=== PATIENT | female | born 1970 | race Hispanic/Latino ===

== ENCOUNTER 2019-04-27 18:10 | Inpatient (IN) | payer BC ==
[~2019-04-27] VITALS: Ht 162.6 cm; Wt 56.8 kg
[~2019-04-27 18:10] MED LIST: COZAAR25 MG OR; GLUCOVANCE5 MG/500 M OR; LORTAB 5 OR; METFORMIN500 M1 OR
[2019-04-27 18:40] LABS: HEMATOCRIT 34.6 % (37.0-47.0); HEMOGLOBIN 11.3 g/dl (12.0-16.0); IMMATURE GRANULOCYTES 0.5 % (0.0-5.0); MEAN CELL VOLUME 92.5 fL CALC (80.0-100.0); MEAN CORPUSCULAR HGB 30.2 pG CALC (26.0-32.0); MEAN CORPUSCULAR HGB CONC 32.7 g/L CALC (32.0-36.0); NEUT# 7.22 thou/uL (2.00-7.15); RED BLOOD COUNT 3.74 mill/uL (4.20-5.60)
[2019-04-27 18:58] LABS: AMYLASE 31 u/l (30-110); BUN 14 mg/dL (7-17); BUN/CREATININE RATIO 20 (12-20 (CALC)); CHLORIDE 95 mmol/l (95-108); CREATININE 0.7 mg/dL (0.5-1.0); GFR > 60 ML/MIN (>=60 (CALC)); GFR FOR AFR.AMER. > 60 ML/MIN (>=60 (CALC)); LIPASE 115 u/l (23-300); POTASSIUM 4.4 mmol/l (3.5-5.1); SGOT/AST 25 u/l (14-36); TOTAL PROTEIN 6.8 g/dL (6.3-8.2)
[2019-04-27] MEDS ORDERED: METFORMIN850 MG PO (18:58)
[2019-04-27] MEDS ORDERED: AUGMENTIN875TAB PO (19:00)
[2019-04-27] MEDS ORDERED: MICARDIS20 MG PO (19:01)
[2019-04-27] MEDS ORDERED: GLYBURIDE5 M1 PO (19:02)
[2019-04-27 19:07] LABS: ALBUMIN 3.6 g/dL (3.2-5.0); ALKALINE PHOSPHATASE 149 u/l (38-126); ANION GAP 23 (6-22 (CALC)); BILIRUBIN, TOTAL 0.7 mg/dL (0.0-1.4); CARBON DIOXIDE 16 mmol/l (22-30); SODIUM 130 mmol/l (137-146)
[2019-04-27 19:09] LABS: MYOGLOBIN 30 ng/mL (0 - 62)
[2019-04-27 21:02] LABS: URINE BILIRUBIN - DIPSTICK NEGATIVE (NEGATIVE); URINE BLOOD DIPSTICK MODERATE (NEGATIVE); URINE COLOR YELLOW; URINE GLUCOSE - DIPSTICK >=1000 mg/dL (NEGATIVE); URINE KETONE 40 mg/dL (NEGATIVE); URINE LEUK ESTERASE NEGATIVE (NEGATIVE); URINE NITRITE - DIPSTICK NEGATIVE (Negative); URINE PH 5.5 (4.5-8.0); URINE PROTEIN - DIPSTICK 30 mg/dL (NEG-TRACE); URINE UROBILINOGEN - DIPSTICK 0.2 E.U./dL (0.2)
[2019-04-27 21:13] LABS: URINE RBC TNTC RBC/hpf (0-5); URINE SQUAMOUS EPITHELIAL CELL FEW EPI/hpf (0-FEW)
[2019-04-27 21:54] LABS: ALKALINE PHOSPHATASE 101 u/l (38-126); BILIRUBIN, TOTAL 0.9 mg/dL (0.0-1.4); BUN 13 mg/dL (7-17); BUN/CREATININE RATIO 24 (12-20 (CALC)); CARBON DIOXIDE 16 mmol/l (22-30); CREATININE 0.5 mg/dL (0.5-1.0); GFR > 60 ML/MIN (>=60 (CALC)); GFR FOR AFR.AMER. > 60 ML/MIN (>=60 (CALC)); SGOT/AST 28 u/l (14-36); SODIUM 133 mmol/l (137-146)
[2019-04-27 21:58] LABS: ALBUMIN 2.2 g/dL (3.2-5.0); ANION GAP 11 (6-22 (CALC)); CHLORIDE 109 mmol/l (95-108); POTASSIUM 3.4 mmol/l (3.5-5.1); TOTAL PROTEIN 4.6 g/dL (6.3-8.2)
[2019-04-27 22:15] VITALS: BP 92/51
[2019-04-27 22:30] VITALS: BP 87/65
[2019-04-27 22:45] VITALS: BP 81/52
[2019-04-27 23:00] VITALS: BP 76/51
[2019-04-27 23:15] VITALS: BP 80/55
[2019-04-27 23:30] VITALS: BP 100/65
[2019-04-28] VITALS (30 sets, daily range): BP systolic 91–131; BP diastolic 53–80
[2019-04-28 00:44] LABS: ANION GAP 15 (6-22 (CALC)); BUN 11 mg/dL (7-17); BUN/CREATININE RATIO 22 (12-20 (CALC)); CARBON DIOXIDE 12 mmol/l (22-30); CHLORIDE 112 mmol/l (95-108); CREATININE 0.5 mg/dL (0.5-1.0); GFR > 60 ML/MIN (>=60 (CALC)); GFR FOR AFR.AMER. > 60 ML/MIN (>=60 (CALC)); POTASSIUM 3.8 mmol/l (3.5-5.1); SODIUM 135 mmol/l (137-146)
[2019-04-28 05:02] LABS: BUN 9 mg/dL (7-17); BUN/CREATININE RATIO 17 (12-20 (CALC)); CHLORIDE 110 mmol/l (95-108); CREATININE 0.5 mg/dL (0.5-1.0); GFR > 60 ML/MIN (>=60 (CALC)); GFR FOR AFR.AMER. > 60 ML/MIN (>=60 (CALC)); POTASSIUM 3.5 mmol/l (3.5-5.1); SODIUM 138 mmol/l (137-146)
[2019-04-28 05:05] LABS: ANION GAP 15 (6-22 (CALC)); CARBON DIOXIDE 17 mmol/l (22-30)
[2019-04-29] VITALS (22 sets, daily range): BP systolic 97–136; BP diastolic 51–82
[2019-04-29 08:28] LABS: HEMATOCRIT 29.4 % (37.0-47.0); MEAN CELL VOLUME 89.9 fL CALC (80.0-100.0); MEAN CORPUSCULAR HGB 30.6 pG CALC (26.0-32.0); RED BLOOD COUNT 3.27 mill/uL (4.20-5.60); RED CELL DISTRI WIDTH 13.2 % (11.5-15.5)
[2019-04-29 09:19] LABS: ANION GAP 12 (6-22 (CALC)); BUN 6 mg/dL (7-17); BUN/CREATININE RATIO 12 (12-20 (CALC)); CARBON DIOXIDE 18 mmol/l (22-30); CHLORIDE 111 mmol/l (95-108); CREATININE 0.5 mg/dL (0.5-1.0); GFR > 60 ML/MIN (>=60 (CALC)); GFR FOR AFR.AMER. > 60 ML/MIN (>=60 (CALC)); POTASSIUM 3.4 mmol/l (3.5-5.1); SODIUM 137 mmol/l (137-146)
[2019-04-30] VITALS (11 sets, daily range): BP systolic 116–145; BP diastolic 69–86
[2019-04-30 04:54] LABS: HEMATOCRIT 26.9 % (37.0-47.0); MEAN CELL VOLUME 90.3 fL CALC (80.0-100.0); MEAN CORPUSCULAR HGB 30.2 pG CALC (26.0-32.0); MEAN CORPUSCULAR HGB CONC 33.5 g/L CALC (32.0-36.0); RED BLOOD COUNT 2.98 mill/uL (4.20-5.60); RED CELL DISTRI WIDTH 13.8 % (11.5-15.5)
[2019-04-30 05:05] LABS: ALBUMIN 2.4 g/dL (3.2-5.0); ALKALINE PHOSPHATASE 148 u/l (38-126); ANION GAP 10 (6-22 (CALC)); BUN 8 mg/dL (7-17); BUN/CREATININE RATIO 8 (12-20 (CALC)); CARBON DIOXIDE 17 mmol/l (22-30); CHLORIDE 114 mmol/l (95-108); GFR 59 ML/MIN (>=60 (CALC)); GFR FOR AFR.AMER. > 60 ML/MIN (>=60 (CALC)); POTASSIUM 3.8 mmol/l (3.5-5.1); SODIUM 138 mmol/l (137-146); TOTAL PROTEIN 5.3 g/dL (6.3-8.2)
[2019-04-30 05:11] LABS: BILIRUBIN, TOTAL 0.5 mg/dL (0.0-1.4); SGOT/AST 111 u/l (14-36)
[2019-05-01] VITALS (11 sets, daily range): BP systolic 117–147; BP diastolic 63–83
[2019-05-01 04:44] LABS: HEMATOCRIT 27.4 % (37.0-47.0); HEMOGLOBIN 9.2 g/dl (12.0-16.0); IMMATURE GRANULOCYTES 1.1 % (0.0-5.0); MEAN CORPUSCULAR HGB 30.6 pG CALC (26.0-32.0); MEAN CORPUSCULAR HGB CONC 33.6 g/L CALC (32.0-36.0); NEUT# 7.81 thou/uL (2.00-7.15); RED BLOOD COUNT 3.01 mill/uL (4.20-5.60)
[2019-05-01 05:06] LABS: ALBUMIN 2.5 g/dL (3.2-5.0); BILIRUBIN, TOTAL 0.4 mg/dL (0.0-1.4); CREATININE 1.5 mg/dL (0.5-1.0); POTASSIUM 3.8 mmol/l (3.5-5.1); TOTAL PROTEIN 5.4 g/dL (6.3-8.2)
[2019-05-01 10:32] LABS: URINE BILIRUBIN - DIPSTICK NEGATIVE (NEGATIVE); URINE BLOOD DIPSTICK LARGE (NEGATIVE); URINE COLOR YELLOW; URINE GLUCOSE - DIPSTICK 500 mg/dL (NEGATIVE); URINE KETONE NEGATIVE (NEGATIVE); URINE LEUK ESTERASE NEGATIVE (Negative); URINE NITRITE - DIPSTICK NEGATIVE (Negative); URINE PROTEIN - DIPSTICK NEGATIVE (NEG-TRACE); URINE SPECIFIC GRAVITY <=1.005; URINE UROBILINOGEN - DIPSTICK 0.2 E.U./dL (0.2)
[2019-05-01 10:38] LABS: URINE CLARITY SL CLOUDY
[2019-05-01 11:16] LABS: C. DIFFICILE TOXIN A&B NEGATIVE (NEGATIVE)
[2019-05-02] VITALS (13 sets, daily range): BP systolic 136–168; BP diastolic 63–82
[2019-05-02 05:09] LABS: HEMATOCRIT 26.3 % (37.0-47.0); HEMOGLOBIN 8.8 g/dl (12.0-16.0); MEAN CELL VOLUME 90.1 fL CALC (80.0-100.0); MEAN CORPUSCULAR HGB 30.1 pG CALC (26.0-32.0); MEAN CORPUSCULAR HGB CONC 33.5 g/L CALC (32.0-36.0); RED BLOOD COUNT 2.92 mill/uL (4.20-5.60); RED CELL DISTRI WIDTH 14.2 % (11.5-15.5)
[2019-05-02 05:25] LABS: ALBUMIN 2.5 g/dL (3.2-5.0); BILIRUBIN, TOTAL 0.3 mg/dL (0.0-1.4); CREATININE 1.6 mg/dL (0.5-1.0); POTASSIUM 3.9 mmol/l (3.5-5.1); TOTAL PROTEIN 5.5 g/dL (6.3-8.2)
[2019-05-03] VITALS (10 sets, daily range): BP systolic 122–159; BP diastolic 65–86
[2019-05-03 06:38] LABS: HEMATOCRIT 26.5 % (37.0-47.0); HEMOGLOBIN 8.9 g/dl (12.0-16.0); IMMATURE GRANULOCYTES 1.2 % (0.0-5.0); MEAN CELL VOLUME 90.4 fL CALC (80.0-100.0); MEAN CORPUSCULAR HGB 30.4 pG CALC (26.0-32.0); MEAN CORPUSCULAR HGB CONC 33.6 g/L CALC (32.0-36.0); NEUT# 7.99 thou/uL (2.00-7.15); RED BLOOD COUNT 2.93 mill/uL (4.20-5.60); RED CELL DISTRI WIDTH 14.6 % (11.5-15.5)
[2019-05-03 06:42] LABS: ALBUMIN 2.5 g/dL (3.2-5.0); BILIRUBIN, TOTAL 0.3 mg/dL (0.0-1.4); CREATININE 1.5 mg/dL (0.5-1.0); MAGNESIUM 2.1 mg/dL (1.6-2.3); POTASSIUM 4.1 mmol/l (3.5-5.1); TOTAL PROTEIN 5.7 g/dL (6.3-8.2)
[2019-05-04] VITALS (10 sets, daily range): BP systolic 131–174; BP diastolic 69–90
[2019-05-04 05:25] LABS: HEMATOCRIT 25.6 % (37.0-47.0); HEMOGLOBIN 8.4 g/dl (12.0-16.0); IMMATURE GRANULOCYTES 1.1 % (0.0-5.0); MEAN CELL VOLUME 93.4 fL CALC (80.0-100.0); MEAN CORPUSCULAR HGB 30.7 pG CALC (26.0-32.0); MEAN CORPUSCULAR HGB CONC 32.8 g/L CALC (32.0-36.0); NEUT# 6.58 thou/uL (2.00-7.15); RED BLOOD COUNT 2.74 mill/uL (4.20-5.60); RED CELL DISTRI WIDTH 14.7 % (11.5-15.5)
[2019-05-04 06:00] LABS: ALKALINE PHOSPHATASE 158 u/l (38-126); SGOT/AST 34 u/l (14-36)
[2019-05-04 06:37] LABS: ALBUMIN 2.6 g/dL (3.2-5.0); CREATININE 1.4 mg/dL (0.5-1.0); POTASSIUM 4.1 mmol/l (3.5-5.1)
[2019-05-05 03:35] VITALS: BP 128/75
[2019-05-05 07:26] LABS: HEMATOCRIT 27.6 % (37.0-47.0); HEMOGLOBIN 9.4 g/dl (12.0-16.0); MEAN CELL VOLUME 91.1 fL CALC (80.0-100.0); MEAN CORPUSCULAR HGB CONC 34.1 g/L CALC (32.0-36.0); RED BLOOD COUNT 3.03 mill/uL (4.20-5.60); RED CELL DISTRI WIDTH 14.5 % (11.5-15.5)
[2019-05-05 07:30] VITALS: BP 127/76
[2019-05-05 07:56] LABS: CREATININE 1.2 mg/dL (0.5-1.0); POTASSIUM 4.4 mmol/l (3.5-5.1)
[2019-05-05 11:06] VITALS: BP 137/80
[2019-05-05] MEDS ORDERED: MEDDOSEPAK PO (13:50)
[2019-05-05] MEDS ORDERED: ROCEPHIN1 G1 IV (13:50)
== END 2019-05-05 15:28 | disposition home or self-care (01) | DRG 871 ==
LOC: ED 18:10 → ED-I 21:01 → ED 21:18 → ICU 21:19 → MS2 05-04 15:57
PROVIDERS: Emergency Medicine; Internal Medicine; Internal Medicine Nephrology; Nurse Practitioner Family; ADMIT Internal Medicine; ATTEND Internal Medicine
PROC: 0W993ZZ Drainage of Right Pleural Cavity, Percutaneous Approach (ICD-10-PCS; principal; 2019-05-03)
DX: A41.51 Sepsis due to Escherichia coli [E. coli] (principal); R65.21 Severe sepsis with septic shock; J18.9 Pneumonia, unspecified organism; N17.0 Acute kidney failure with tubular necrosis; N39.0 Urinary tract infection, site not specified; E87.2 Acidosis; J91.8 Pleural effusion in other conditions classified elsewhere; E11.65 Type 2 diabetes mellitus with hyperglycemia; I95.9 Hypotension, unspecified; R74.0 Nonspecific elevation of levels of transaminase and lactic acid dehydrogenase [LDH]; E87.8 Other disorders of electrolyte and fluid balance, not elsewhere classified; R19.7 Diarrhea, unspecified; D47.3 Essential (hemorrhagic) thrombocythemia; D64.9 Anemia, unspecified; T36.0X5A Adverse effect of penicillins, initial encounter; T36.8X5A Adverse effect of other systemic antibiotics, initial encounter; Z79.84 Long term (current) use of oral hypoglycemic drugs
CPT/HCPCS: J0131; J1650; J3370

== ENCOUNTER 2022-10-03 16:38 | Observation (INO) | payer BC ==
[~2022-10-03] VITALS: Ht 162.6 cm; Wt 50.0 kg
[~2022-10-03 16:38] MED LIST changes: +AUGMENTIN875TAB PO; +GLYBURIDE5 M1 PO; +MEDDOSEPAK PO; +METFORMIN850 MG PO; +MICARDIS20 MG PO; +ROCEPHIN1 G1 IV
--- NOTE | 2022-10-03 17:46 | NUR ---
PT AMBULATES TO TRIAGE FOR EVAL OF BODY ACHES, FEVER, AND ELEVATED BLOOD SUGAR 277 AT HOME. HR 140 IN TRIAGE. PT IS ALSO TAKING KEFLEX AT HOME FOR CURRENT UTI
[2022-10-03] MEDS ORDERED: KEFLEX500 MG PO (17:48)
--- NOTE | 2022-10-03 18:39 | NUR ---
PT SITTING IN AWAITING RESULTS AT THIS TIME. CALL LIGHT WITHIN REACH.
[2022-10-03 18:51] LABS: ALBUMIN 4.8 g/dL (3.2-5.0); ANION GAP 18 (6-22 (CALC)); BILIRUBIN, TOTAL 0.8 mg/dL (0.0-1.4); BUN 11 mg/dL (7-17); BUN/CREATININE RATIO 17 (12-20 (CALC)); CARBON DIOXIDE 26 mmol/l (22-30); CHLORIDE 94 mmol/l (95-108); CREATININE 0.6 mg/dL (0.5-1.0); GFR FOR AFR.AMER. > 60 ML/MIN (>=60 (CALC)); GFR OTHER RACES > 60 ML/MIN (>=60 (CALC)); POTASSIUM 3.9 mmol/l (3.5-5.1); SGOT/AST 44 u/l (14-36); SODIUM 134 mmol/l (137-146); TOTAL PROTEIN 8.7 g/dL (6.3-8.2)
[2022-10-03 18:52] LABS: ALKALINE PHOSPHATASE 121 u/l (38-126)
[2022-10-03 18:57] LABS: HEMATOCRIT 35.6 % (37.0-47.0); HEMOGLOBIN 12.2 g/dl (12.0-16.0); IMMATURE GRANULOCYTES 0.6 % (0.0-5.0); LYMPH% 5.9 % (15-41); MEAN CELL VOLUME 91.5 fL CALC (80.0-100.0); MEAN CORPUSCULAR HGB 31.4 pG CALC (26.0-32.0); MEAN CORPUSCULAR HGB CONC 34.3 g/dL CAL (32.0-36.0); MONO% 9.4 % (2-13); NEUT# 21.63 thou/uL (2.00-7.15); NEUT% 84.1 % (42-76); RED BLOOD COUNT 3.89 mill/uL (4.20-5.60)
[2022-10-03 19:06] LABS: URINE BILIRUBIN - DIPSTICK NEGATIVE (NEGATIVE); URINE BLOOD DIPSTICK MODERATE (NEGATIVE); URINE COLOR YELLOW; URINE GLUCOSE - DIPSTICK >=1000 mg/dL (NEGATIVE); URINE KETONE >=80 mg/dL (NEGATIVE); URINE LEUK ESTERASE NEGATIVE (NEGATIVE); URINE NITRITE - DIPSTICK NEGATIVE (Negative); URINE PROTEIN - DIPSTICK 30 mg/dL (NEG-TRACE); URINE SPECIFIC GRAVITY 1.015; URINE UROBILINOGEN - DIPSTICK 0.2 E.U./dL (0.2)
[2022-10-03 19:25] LABS: URINE SQUAMOUS EPITHELIAL CELL MODERATE EPI/hpf (0-FEW)
--- NOTE | 2022-10-03 19:30 | NUR ---
PT SITTING IN AWAITING RESULTS AT THIS TIME. CALL LIGHT WITHIN REACH.
--- NOTE | 2022-10-03 20:30 | NUR ---
PT SITTING IN AWAITING RESULTS AT THIS TIME. CALL LIGHT WITHIN REACH.
--- NOTE | 2022-10-03 21:15 | NUR ---
Admission Note Report Given to: TOSHIA BONILLA Transported by: X Wheelchair Stretcher Transported with: Nurse X Transporter X Patent IV O2 Loss Control Consultant Location: ICU X MS2
--- NOTE | 2022-10-03 22:30 | NUR ---
PATIENT ADMITTED FROM ER VIA WHEELCHAIR WITH NSG SUP IN [facility] HER SON AND . PATIENT IS ABLE TO TRANSFER TO THE BED HERSELF. PATIENT IS AWAKE ALERT AND ORIENTEDX3. PATIENT IS MOSTLY [place] SPEAKING BUT SON AZEB IS HERE TO TRANSLATE. PATIENT CAME TO THE HOSPITAL TODAY DUE TO FEVER AND CHILLS. DID SEE DR. VITAL YESTERDAY AND WAS TAKING PO ANTIBIOTICS WITH NO IMPROVEMENT. STILL C/O SOME BURNING UPON URINATION. IV SITE TO LAC INTACT AND HEALTHY WITH GOOD BLOOD RETURN. IVF NS HUNG AND INFUSING AT 125CC/HR. LUNGS ARE CLEAR. ABD IS SOFT WITH ACTIVE BS. HR IS RAPID-OVER 100. NO FEVER AT THIS TIME. NO PERIPHERAL EDEMA AND PULSES ARE PALPABLE. GLUCOSE METER WAS 252-COVERED WITH HUMALOG PER [employer]. PROVIDED PATIENT WITH HELATHY CHOICE TURKEY DINNER AND DRINK. ORIENTED TO ROOM AND SURROUNDINGS. INSTRUCTED ON USE OF NURSE CALL LIGHT SYSTEM AND TV REMOTE. SAFETY PRECAUTIONS REINFORCED. CALL LIGHT IN REACH. WILL CONT TO MONITOR.
[2022-10-04] VITALS (8 sets, daily range): BP systolic 101–128; BP diastolic 52–71
[2022-10-04] MEDS ORDERED: ASPIRIN LOW81 M1 PO (01:48)
--- NOTE | 2022-10-04 02:41 | NUR ---
RESTING IN BED WITH EYES CLOSED. RESPS ARE EVEN AND UNLABORED. IVF PATENT AND INFUSING VIA LAC SITE AT 125CC/HR. SITE REMAINS HEALTHY AT THIS TIME. CALL LIGHT IN REACH. WILL CONT TO MONITOR.
--- NOTE | 2022-10-04 04:14 | NUR ---
PATIENT RESTING IN BED-STATES THAT SHE CAN'T SLEEP. STATES THAT SHE HAS TROUBLE AT HOME TOO. MEDICATED WITH TYLENOL FOR GENERALIZED ACHES. IVF PATENT AND INFUSING AT 125CC/HR. SITE REMAINS HEALTHY. CALL LIGHT IN REACH. WILL CONT TO MONITOR.
[2022-10-04 05:22] LABS: BASO% 0.1 % (0-3); IMMATURE GRANULOCYTES 0.4 % (0.0-5.0); LYMPH% 9.9 % (15-41); MEAN CELL VOLUME 92.8 fL CALC (80.0-100.0); MEAN CORPUSCULAR HGB 32.1 pG CALC (26.0-32.0); MEAN CORPUSCULAR HGB CONC 34.6 g/dL CAL (32.0-36.0); MONO% 10.9 % (2-13); NEUT# 18.58 thou/uL (2.00-7.15); NEUT% 78.7 % (42-76); RED BLOOD COUNT 2.93 mill/uL (4.20-5.60)
--- NOTE | 2022-10-04 05:28 | NUR ---
RESTING IN BED-HR REMAINS ELEVATED AT 114. TEMP IS 99.8 EVEN WITH TYLENOL. IVF PATENT AND INFUSING ORDERED AT 125CC/HR VIA LAC SITE. [facility] WILL CONT TO MONITOR.
[2022-10-04 05:36] LABS: ALKALINE PHOSPHATASE 86 u/l (38-126); ANION GAP 11 (6-22 (CALC)); BILIRUBIN, TOTAL 0.6 mg/dL (0.0-1.4); BUN 11 mg/dL (7-17); BUN/CREATININE RATIO 20 (12-20 (CALC)); CARBON DIOXIDE 22 mmol/l (22-30); CHLORIDE 105 mmol/l (95-108); CREATININE 0.6 mg/dL (0.5-1.0); GFR FOR AFR.AMER. > 60 ML/MIN (>=60 (CALC)); GFR OTHER RACES > 60 ML/MIN (>=60 (CALC)); POTASSIUM 3.8 mmol/l (3.5-5.1); SGOT/AST 38 u/l (14-36); SODIUM 134 mmol/l (137-146)
[2022-10-04 05:40] LABS: ALBUMIN 3.3 g/dL (3.2-5.0); TOTAL PROTEIN 6.5 g/dL (6.3-8.2)
[2022-10-04 05:54] LABS: HEMATOCRIT 27.2 % (37.0-47.0); HEMOGLOBIN 9.4 g/dl (12.0-16.0)
--- NOTE | 2022-10-04 08:20 | NUR ---
PATIENT ALERT AND ORIENTED X3. RESTING STABLE IN BED AT THIS TIME. ASSESSMENT HEAD-TO TOE COMPLETE. PATIENT IS EDUCATED ABOUD MEDICATIONS, PAIN MANAGEMENT AND NURSING PLAN FOR TODAY. PATIENT REFER UNSERSTAND. SAFETY AND FALL PRECAUTIONS IN PLACE. CALL LIGHT WITHIN IN REACH. BEFORE HE LEFT OR THE
--- NOTE | 2022-10-04 12:00 | NUR ---
PT RESTING IN BED. STATES NO PAIN. TELE MONITOR IN PLACE. CONTINOUS MONITORING FALL/SAFTEY PRECAUTION IN PLACE, CALL LIGHT WITHIN REACH.
--- NOTE | 2022-10-04 16:41 | NUR ---
PATIENT RESTING IN BED ACCOMPANIE FOR THE FAMILY. MEDICATED WITH TYLENOL FOR FEVER. SAFETY AND FALL PRECAUTIONS IN PLACE. CALL LIGHT IN REACH.
--- NOTE | 2022-10-04 18:50 | NUR ---
RECEIVED REPORT FROM CHAD THOMPSON.
--- NOTE | 2022-10-04 20:10 | NUR ---
PT RESTING ON BED: A&O X3. FAMILY AT BEDSIDE. EVEN AND UNLABORED RESPIRATIONS; CLEAR LUNG SOUNDS UPON AUSCULTATION. IV FLUSHED: #20G RT AC, HEALTHY AND PATENT. ACTIVE BOWEL SOUNDS X4 QUADRANTS. SAFETY PRECAUTIONS IN PLACE WITH CALL LIGHT IN REACH.
--- NOTE | 2022-10-05 00:25 | NUR ---
PT ASSISTED TO BATHROOM. PT BACK IN BED. NO DISTRESS NOTED. PT DENIES PAIN AT THIS TIME. HANGING SCHEDULED ABX. SAFETY PRECAUTIONS IN PLACE WITH CALL LIGHT IN REACH.
--- NOTE | 2022-10-05 04:08 | NUR ---
PT RESTING ON BED. TIMBER INSPECTOR OBTAINING BLOOD SAMPLE FOR LABS. IV SITE HEALTHY AND PATENT, INFUSING FLUIDS PER ORDER. NO DISTRESS NOTED. PT DENIES PAIN AT THIS TIME. SAFETY PRECAUTIONS IN PLACE WITH CALL LIGHT INREACH.
[2022-10-05 04:27] VITALS: BP 118/66
[2022-10-05 05:58] LABS: BASO% 0.3 % (0-3); EOS% 0.6 % (0-8); HEMATOCRIT 24.8 % (37.0-47.0); HEMOGLOBIN 8.5 g/dl (12.0-16.0); IMMATURE GRANULOCYTES 0.3 % (0.0-5.0); LYMPH% 19.9 % (15-41); MEAN CELL VOLUME 93.9 fL CALC (80.0-100.0); MEAN CORPUSCULAR HGB 32.2 pG CALC (26.0-32.0); MEAN CORPUSCULAR HGB CONC 34.3 g/dL CAL (32.0-36.0); MONO% 8.1 % (2-13); NEUT# 9.84 thou/uL (2.00-7.15); NEUT% 70.8 % (42-76); RED BLOOD COUNT 2.64 mill/uL (4.20-5.60); RED CELL DISTRI WIDTH 13.3 % (11.5-15.5)
[2022-10-05 06:11] LABS: ALBUMIN 3.2 g/dL (3.2-5.0); ALKALINE PHOSPHATASE 117 u/l (38-126); ANION GAP 10 (6-22 (CALC)); BILIRUBIN, TOTAL 0.8 mg/dL (0.0-1.4); BUN 9 mg/dL (7-17); BUN/CREATININE RATIO 18 (12-20 (CALC)); CARBON DIOXIDE 24 mmol/l (22-30); CHLORIDE 108 mmol/l (95-108); CREATININE 0.5 mg/dL (0.5-1.0); GFR FOR AFR.AMER. > 60 ML/MIN (>=60 (CALC)); GFR OTHER RACES > 60 ML/MIN (>=60 (CALC)); POTASSIUM 3.6 mmol/l (3.5-5.1); SODIUM 139 mmol/l (137-146); TOTAL PROTEIN 6.1 g/dL (6.3-8.2)
[2022-10-05 06:21] LABS: SGOT/AST 256 u/l (14-36)
[2022-10-05 06:40] VITALS: BP 107/64
--- NOTE | 2022-10-05 08:16 | NUR ---
SHIFT CHANGE REPORT, PT AWAKE ALERT AND ORIENTED SITTING UP IN BED, STATES SHE FEELS MUCH BETTER TODAY AND WANTS TO GO HOME, ADVISED MD WILL BE ROUNDING SOON AND WILL DISCUSS PLAN OF CARE, IVF 0.9 NS INFUSING AT 125ML/HR TO SITE IN [facility], TELE MONITOR IN PLACE, CALL [facility] IN REACH AND BED LOCKED IN LOWEST POSITION.
[2022-10-05] MEDS ORDERED: CIPROFLOXACN500 MG PO (10:44)
--- NOTE | 2022-10-05 12:52 | NUR ---
Discharge instructions given. Patient verbalizes understanding of same. Discharged in good condition via Wheelchair to Home with spouse. All belongings sent with pt.
== END 2022-10-05 13:21 | disposition home or self-care (01) | DRG 872 ==
LOC: ED 16:38 → ED-I 18:44 → ED 20:47 → MS2 20:48
PROVIDERS: Emergency Medicine; Nurse Practitioner Family; ADMIT Internal Medicine; ATTEND Internal Medicine
DX: A41.9 Sepsis, unspecified organism (principal); E11.65 Type 2 diabetes mellitus with hyperglycemia; I10 Essential (primary) hypertension; Z79.84 Long term (current) use of oral hypoglycemic drugs; Z20.822 Contact with and (suspected) exposure to COVID-19
CPT/HCPCS: G0378; J0692; Q9967